=== PATIENT | male | born 1960 | race African-American/Black ===

== ENCOUNTER 2020-12-26 07:21 | Emergency (ER) | payer MEDICAID ==
[~2020-12-26] VITALS: Ht 182.9 cm; Wt 77.0 kg
[2020-12-26 07:39] VITALS: BP 116/88
[2020-12-26] MEDS ORDERED: AMOX-424 PO (08:16)
[2020-12-26] MEDS ORDERED: TOPUD PO (08:16)
== END 2020-12-26 09:03 | disposition home or self-care (01) ==
LOC: ER 07:21
DX: J02.9 Acute pharyngitis, unspecified (principal); Z98.890 Other specified postprocedural states; Z88.8 Allergy status to other drugs, medicaments and biological substances
CPT/HCPCS: 87070; 87430; 99283

== ENCOUNTER 2023-04-18 05:46 | Emergency (ER) | payer MEDICAID ==
[~2023-04-18] VITALS: Ht 188 cm; Wt 73.0 kg
[~2023-04-18 05:46] MED LIST: AMOX-424 PO; BENZ-16 MT; GUAI600T26 MT; MED4 MT; TOPUD PO
[2023-04-18 05:56] VITALS: BP 186/81; O2SAT 98
[2023-04-18] MEDS ORDERED: TOPUD PO (06:32)
[2023-04-18] MEDS ORDERED: ACETAMINOPHEN 325MG TABLET PO ONE (06:45)
[2023-04-18 06:53] VITALS: PULSE 65; RESP 18; TEMP 97.7
== END 2023-04-18 06:59 | disposition home or self-care (01) ==
LOC: ER 05:46
DX: M79.10 Myalgia, unspecified site (principal); M25.559 Pain in unspecified hip; F12.10 Cannabis abuse, uncomplicated; Z79.899 Other long term (current) drug therapy
CPT/HCPCS: 99282

== ENCOUNTER 2023-10-02 14:28 | Emergency (ER) | payer MEDICAID ==
[~2023-10-02] VITALS: Ht 182.9 cm; Wt 66.0 kg
[2023-10-02 14:29] VITALS: O2SAT 98
[2023-10-02] MEDS ORDERED: BENZ150C3 MT (15:28)
[2023-10-02] MEDS ORDERED: ALBU6.7H15 INH (15:28)
[2023-10-02 16:53] VITALS: BP 126/69; PULSE 92; RESP 16; TEMP 97.6
== END 2023-10-02 16:54 | disposition home or self-care (01) ==
LOC: ER 14:28
DX: J06.9 Acute upper respiratory infection, unspecified (principal); F12.10 Cannabis abuse, uncomplicated
CPT/HCPCS: 71045; 99283

== ENCOUNTER 2023-10-09 03:10 | Emergency (ER) | payer MEDICAID ==
[~2023-10-09] VITALS: Ht 188 cm; Wt 90.0 kg
[~2023-10-09 03:10] MED LIST changes: +ALBU6.7H15 INH; +BENZ150C3 MT
[2023-10-09 03:12] VITALS: O2SAT 96
[2023-10-09] MEDS ORDERED: AZIT250T12 MT (05:31)
[2023-10-09] MEDS ORDERED: P20 PO (05:31)
[2023-10-09 05:51] VITALS: BP 101/64; PULSE 100; RESP 16
[2023-10-09] MEDS: AZITHROMYCIN 500 MG TABLET PO ONE (05:54)
[2023-10-09] MEDS: PREDNISONE 20MG TABLET PO ONE (05:54)
== END 2023-10-09 06:02 | disposition home or self-care (01) ==
LOC: ER 03:10
DX: J06.9 Acute upper respiratory infection, unspecified (principal); F12.10 Cannabis abuse, uncomplicated
CPT/HCPCS: 99283; J7512

== ENCOUNTER 2024-12-23 02:55 | Emergency (ER) | payer MEDICAID ==
[~2024-12-23] VITALS: Ht 188 cm; Wt 75.0 kg
[~2024-12-23 02:55] MED LIST changes: +AZIT250T12 MT; -BENZ150C3 MT; +BENZ150C8 MT; -MED4 MT; +METH4TAB95 MT; +P20 PO
[2024-12-23 03:12] VITALS: TEMP 36.6; O2SAT 99
[2024-12-23] MEDS: DEXAMETHASONE 4MG TABLET PO ONE (03:58)
[2024-12-23] MEDS ORDERED: IBUP-2028 MT (05:13)
[2024-12-23 05:22] VITALS: BP 128/83; PULSE 89; RESP 18; O2SAT 100
== END 2024-12-23 05:28 | disposition home or self-care (01) ==
LOC: ER 02:55
DX: M79.675 Pain in left toe(s) (principal); F12.90 Cannabis use, unspecified, uncomplicated; Z98.890 Other specified postprocedural states
CPT/HCPCS: 99283; 73630; J8540

== ENCOUNTER 2024-12-28 03:57 | Emergency (ER) | payer MEDICAID ==
[~2024-12-28] VITALS: Ht 185.4 cm; Wt 73.2 kg
[~2024-12-28 03:57] MED LIST changes: +IBUP-2028 MT
[2024-12-28 04:30] VITALS: O2SAT 98
[2024-12-28] MEDS ORDERED: SULF1TAB48 PO (06:06)
[2024-12-28] MEDS ORDERED: CEPH500C2 PO (06:06)
[2024-12-28 06:33] VITALS: BP 119/74; PULSE 81; RESP 16; TEMP 37; O2SAT 98
== END 2024-12-28 06:34 | disposition home or self-care (01) ==
LOC: ER 03:57
DX: L03.031 Cellulitis of right toe (principal); F12.90 Cannabis use, unspecified, uncomplicated; Z79.899 Other long term (current) drug therapy; Z79.52 Long term (current) use of systemic steroids; Z98.890 Other specified postprocedural states
CPT/HCPCS: 99283

== ENCOUNTER 2025-01-07 02:12 | Emergency (ER) | payer MEDICAID ==
[~2025-01-07] VITALS: Ht 182.9 cm; Wt 71.0 kg
[~2025-01-07 02:12] MED LIST changes: +CEPH500C2 PO; +SULF1TAB48 PO
[2025-01-07 02:20] VITALS: O2SAT 99
[2025-01-07 03:54] VITALS: BP 131/80; PULSE 86; RESP 19; TEMP 36.7; O2SAT 99
== END 2025-01-07 04:06 | disposition home or self-care (01) ==
LOC: ER 02:12
DX: L60.0 Ingrowing nail (principal); F12.10 Cannabis abuse, uncomplicated; F32.A Depression, unspecified; Z48.00 Encounter for change or removal of nonsurgical wound dressing; Z79.899 Other long term (current) drug therapy
CPT/HCPCS: 99281

== ENCOUNTER 2025-01-17 04:12 | Emergency (ER) | payer MEDICAID ==
[~2025-01-17] VITALS: Ht 185.4 cm; Wt 71.0 kg
[2025-01-17 04:29] VITALS: O2SAT 99
[2025-01-17] MEDS ORDERED: ALBU90AE INH (05:31)
[2025-01-17] MEDS: BENZONATATE 100MG CAPSULE PO ONE (05:32)
[2025-01-17 06:10] VITALS: BP 147/77; PULSE 86; RESP 16; TEMP 36.6; O2SAT 98
[2025-01-17] MEDS ORDERED: AZIT250T12 PO (06:26)
== END 2025-01-17 06:13 | disposition home or self-care (01) ==
LOC: ER 04:12
DX: J18.9 Pneumonia, unspecified organism (principal); R05.9 Cough, unspecified; F12.90 Cannabis use, unspecified, uncomplicated; Z79.52 Long term (current) use of systemic steroids
CPT/HCPCS: 71045; 99283

== ENCOUNTER 2025-01-18 06:19 | Emergency (ER) | payer MEDICAID ==
[~2025-01-18] VITALS: Ht 185.4 cm; Wt 71.0 kg
[~2025-01-18 06:19] MED LIST changes: +ALBU90AE INH; +AZIT250T12 PO
[2025-01-18 06:33] VITALS: O2SAT 99
[2025-01-18 07:57] VITALS: BP 119/75; PULSE 83; RESP 18; TEMP 36.8; O2SAT 99
== END 2025-01-18 07:57 | disposition home or self-care (01) ==
LOC: ER 06:19
DX: J18.9 Pneumonia, unspecified organism (principal); Z79.52 Long term (current) use of systemic steroids
CPT/HCPCS: 99283

== ENCOUNTER 2025-01-23 02:45 | Emergency (ER) | payer MEDICAID ==
[~2025-01-23] VITALS: Ht 185.4 cm; Wt 71.0 kg
[2025-01-23 02:53] VITALS: TEMP 36.7
[2025-01-23] MEDS: PREDNISONE 20MG TABLET PO ONE (03:29)
[2025-01-23] MEDS: SODIUM CHLORIDE 0.9% 1,000 ML IV ONE (03:30)
[2025-01-23 03:41] LABS: POTASSIUM 3.2 mEq/L (3.5-5.1)
[2025-01-23 03:42] LABS: CALCIUM 8.3 mg/dL (8.7-10.4)
[2025-01-23] MEDS: ALBUTEROL (0.083%) 2.5MG/3ML NEB HHN ONE (03:42)
[2025-01-23 03:44] VITALS: PULSE 69; RESP 16; O2SAT 97
[2025-01-23 03:47] LABS: BASOPHILS % 0.2 % (0.0-2.0); CREATININE 1.4 mg/dL (0.6-1.3); EOSINOPHILS % 0.5 % (0.0-5.0); HEMATOCRIT. 37.6 % (42.0-52.0); HEMOGLOBIN. 12.5 g/dL (14.0-18.0); LYMPHOCYTES % 12.4 % (20.0-50.0); MEAN CORPUSCULAR HEMOGLOBIN 32.6 pg (28.0-32.0); MEAN CORPUSCULAR HGB CONC 33.3 g/dL (31.0-37.0); MEAN CORPUSCULAR VOLUME 97.9 fL (80.0-94.0); MEAN PLATELET VOLUME 8.9 fl (7.4-10.4); NEUTROPHILS % 80.9 % (40.0-76.0); PLATELET 150 x1000/uL (130-400); RED BLOOD CELL COUNT 3.83 mill/uL (4.7-6.1); RED CELL DISTRIBUTION WIDTH 14.3 % (11.6-14.6); WHITE BLOOD COUNT 6.7 x1000/uL (4.5-11.0)
[2025-01-23] MEDS ORDERED: P50 MT (04:47)
[2025-01-23] MEDS: CEFTRIAXONE 1GM/50ML 50 ML IV ONE (04:50)
[2025-01-23] MEDS: POTASSIUM CHLORIDE 20MEQ/PACKET PO ONE (05:16)
[2025-01-23 05:48] VITALS: BP 133/81; PULSE 73; RESP 22; O2SAT 97
== END 2025-01-23 06:02 | disposition home or self-care (01) ==
LOC: ER 02:45
DX: J18.9 Pneumonia, unspecified organism (principal); F12.90 Cannabis use, unspecified, uncomplicated; Z79.52 Long term (current) use of systemic steroids
CPT/HCPCS: 80048; 85025; 36415; 71045; 94640; 98960; 96361; 96365; 99285; J7512; J0696; Z7610 ×3; J7030; 94070; 94664

== ENCOUNTER 2025-02-06 05:54 | Emergency (ER) | payer MEDICAID ==
[~2025-02-06] VITALS: Ht 185.4 cm; Wt 76.3 kg
[~2025-02-06 05:54] MED LIST changes: +P50 MT
[2025-02-06 06:20] VITALS: TEMP 36.5; O2SAT 99
[2025-02-06 08:14] VITALS: BP 126/68; PULSE 69; RESP 15; O2SAT 100
== END 2025-02-06 08:41 | disposition home or self-care (01) ==
LOC: ER 05:54
DX: R05.9 Cough, unspecified (principal); R09.81 Nasal congestion; Z79.52 Long term (current) use of systemic steroids; Z79.899 Other long term (current) drug therapy
CPT/HCPCS: 71045; 99283

== ENCOUNTER 2025-02-16 20:21 | Emergency (ER) | payer MEDICAID ==
[~2025-02-16] VITALS: Ht 185.4 cm; Wt 65.5 kg
[2025-02-16 20:25] VITALS: O2SAT 97
[2025-02-16 20:40] VITALS: BP 117/69; PULSE 102; RESP 18; TEMP 37; O2SAT 99
[2025-02-16] MEDS: PREDNISONE 20MG TABLET PO ONE (21:42)
[2025-02-16] MEDS ORDERED: P20 MT (23:00)
== END 2025-02-16 23:14 | disposition home or self-care (01) ==
LOC: ER 20:21
DX: R33.9 Retention of urine, unspecified (principal); Z46.6 Encounter for fitting and adjustment of urinary device; Z79.52 Long term (current) use of systemic steroids; Z79.899 Other long term (current) drug therapy
CPT/HCPCS: 99283; J7512; Z7610 ×2

== ENCOUNTER 2025-02-22 10:33 | Emergency (ER) | payer MEDICAID ==
[~2025-02-22] VITALS: Ht 172.7 cm; Wt 69.0 kg
[~2025-02-22 10:33] MED LIST changes: +P20 MT
[2025-02-22 10:38] VITALS: O2SAT 98
[2025-02-22 11:05] VITALS: BP 128/80; PULSE 68; RESP 18; TEMP 36.6; O2SAT 100
== END 2025-02-22 11:06 | disposition home or self-care (01) ==
LOC: ER 10:33
DX: Z46.6 Encounter for fitting and adjustment of urinary device (principal); Z79.52 Long term (current) use of systemic steroids
CPT/HCPCS: 99283

== ENCOUNTER 2025-02-28 00:16 | Emergency (ER) | payer MEDICAID ==
[~2025-02-28] VITALS: Ht 170.2 cm; Wt 60.0 kg
[2025-02-28] MEDS ORDERED: ALPRAZOLAM 0.25 MG TABLET PO ONE (00:30)
[2025-02-28 00:34] VITALS: O2SAT 97
[2025-02-28] MEDS: ALPRAZOLAM 0.25 MG TABLET PO NR (02:32)
[2025-02-28 03:19] VITALS: BP 125/72; PULSE 70; RESP 16; TEMP 36.8; O2SAT 99
[2025-03-07] MEDS ORDERED: CEFP200T13 MT (08:03)
== END 2025-02-28 04:28 | disposition home or self-care (01) ==
LOC: ER 00:16
DX: F41.9 Anxiety disorder, unspecified (principal); Z59.00 Homelessness unspecified; Z79.52 Long term (current) use of systemic steroids; Z79.899 Other long term (current) drug therapy; Z98.890 Other specified postprocedural states
CPT/HCPCS: 51702; 99283; 99284

== ENCOUNTER 2025-03-02 00:09 | Emergency (ER) | payer MEDICAID ==
[~2025-03-02] VITALS: Ht 185.4 cm; Wt 66.0 kg
[2025-03-02 00:18] VITALS: BP 125/82; TEMP 36.8; O2SAT 99
[2025-03-02 00:19] VITALS: PULSE 91; RESP 16; O2SAT 95
== END 2025-03-02 04:20 | disposition left against medical advice (07) ==
LOC: ER 00:09
DX: M79.671 Pain in right foot (principal); Z53.21 Procedure and treatment not carried out due to patient leaving prior to being seen by health care provider; Z98.890 Other specified postprocedural states

== ENCOUNTER 2025-03-03 02:33 | Emergency (ER) | payer MEDICAID ==
[~2025-03-03] VITALS: Ht 185.4 cm; Wt 81.6 kg
[2025-03-03 02:40] VITALS: BP 135/72; PULSE 65; RESP 16; TEMP 36.9; O2SAT 100
[2025-03-07] MEDS ORDERED: CEFP200T13 MT (08:03)
== END 2025-03-03 04:12 | disposition home or self-care (01) ==
LOC: ER 02:33
DX: T83.098A Other mechanical complication of other urinary catheter, initial encounter (principal)
CPT/HCPCS: 51702; 99284

== ENCOUNTER 2025-03-06 07:39 | Emergency (ER) | payer MEDICAID ==
[~2025-03-06] VITALS: Ht 182.9 cm; Wt 80.0 kg
[2025-03-06 07:49] VITALS: O2SAT 98
[2025-03-06 08:48] VITALS: BP 114/66; PULSE 67; RESP 14; TEMP 37.1; O2SAT 100
[2025-03-07] MEDS ORDERED: CEFP200T13 MT (08:03)
== END 2025-03-06 09:17 | disposition home or self-care (01) ==
LOC: ER 07:39
DX: N40.0 Benign prostatic hyperplasia without lower urinary tract symptoms (principal); Z46.6 Encounter for fitting and adjustment of urinary device; Z79.52 Long term (current) use of systemic steroids
CPT/HCPCS: 99283

== ENCOUNTER 2025-03-10 10:10 | Emergency (ER) | payer MEDICAID ==
[~2025-03-10] VITALS: Ht 182.9 cm; Wt 75.0 kg
[~2025-03-10 10:10] MED LIST changes: +CEFP200T13 MT
[2025-03-10 10:13] VITALS: O2SAT 97
[2025-03-10 12:29] VITALS: BP 116/68; PULSE 75; RESP 16; TEMP 36.7; O2SAT 98
[2025-03-10 12:48] LABS: CLARITY URINE CLOUDY (CLEAR); COLOR URINE YELLOW (YELLOW); SPECIFIC GRAVITY URINE 1.019 (1.005-1.030)
[2025-03-10 12:49] LABS: GLUCOSE URINE NEGATIVE (NEGATIVE); KETONES URINE NEGATIVE (NEGATIVE); LEUKOCYTE ESTERASE URINE 3+ (NEGATIVE); NITRITE URINE POSITIVE (NEGATIVE); OCCULT BLOOD URINE 2+ (NEGATIVE); PH URINE 8.0 (4.5-8.0); PROTEIN URINE 1+ (NEGATIVE); UROBILINOGEN URINE 1.0 E.U./dL (0.2-1.0)
[2025-03-10 13:12] LABS: WBC URINE TNTC /hpf (0-2)
[2025-03-10 13:18] LABS: RBC URINE 50-100 /hpf (0-2)
[2025-03-10 13:20] LABS: BACTERIA URINE 4+; SQUAMOUS EPITHELIAL CELL URINE NONE SEEN /lpf (RARE/1+)
== END 2025-03-10 12:49 | disposition home or self-care (01) ==
LOC: ER 10:10
DX: S00.83XA Contusion of other part of head, initial encounter (principal); N39.0 Urinary tract infection, site not specified; Z79.52 Long term (current) use of systemic steroids; Z87.440 Personal history of urinary (tract) infections; Z79.899 Other long term (current) drug therapy; W19.XXXA Unspecified fall, initial encounter; Y93.89 Activity, other specified; Y92.89 Other specified places as the place of occurrence of the external cause; Y99.8 Other external cause status
CPT/HCPCS: 81003; 87086; 87186; 87077; 70450; 70486; 99284; Z7610 ×3; A4606

== ENCOUNTER 2025-03-21 22:14 | Emergency (ER) | payer MEDICAID ==
[~2025-03-21] VITALS: Ht 185.4 cm; Wt 66.0 kg
[2025-03-21 22:31] VITALS: O2SAT 99
[2025-03-22 00:01] LABS: CLARITY URINE CLOUDY (CLEAR); COLOR URINE YELLOW (YELLOW); GLUCOSE URINE NEGATIVE (NEGATIVE); KETONES URINE NEGATIVE (NEGATIVE); LEUKOCYTE ESTERASE URINE 2+ (NEGATIVE); NITRITE URINE POSITIVE (NEGATIVE); OCCULT BLOOD URINE 3+ (NEGATIVE); PH URINE 6.5 (4.5-8.0); PROTEIN URINE 1+ (NEGATIVE); SPECIFIC GRAVITY URINE 1.021 (1.005-1.030); UROBILINOGEN URINE 1.0 E.U./dL (0.2-1.0)
[2025-03-22] MEDS ORDERED: PRED5TAB48 MT (00:40)
[2025-03-22] MEDS ORDERED: CEFP100T8 MT (00:40)
[2025-03-22 00:51] VITALS: BP 132/78; PULSE 91; RESP 16; TEMP 36.8; O2SAT 99
[2025-03-22 01:44] LABS: WBC URINE 25-50 /hpf (0-2)
[2025-03-22 01:49] LABS: RBC URINE 25-50 /hpf (0-2); SQUAMOUS EPITHELIAL CELL URINE FEW /lpf (RARE/1+)
[2025-03-22 01:50] LABS: BACTERIA URINE 1+
== END 2025-03-22 00:52 | disposition home or self-care (01) ==
LOC: ER 22:14
DX: J02.9 Acute pharyngitis, unspecified (principal); N39.0 Urinary tract infection, site not specified; Z79.52 Long term (current) use of systemic steroids; Z79.899 Other long term (current) drug therapy
CPT/HCPCS: 81003; 87077; 87186; 99283

== ENCOUNTER 2025-04-07 23:36 | Emergency (ER) | payer MEDICAID ==
[~2025-04-07] VITALS: Ht 182.9 cm; Wt 73.0 kg
[~2025-04-07 23:36] MED LIST changes: +CEFP100T8 MT; +PRED5TAB48 MT
[2025-04-07 23:42] VITALS: O2SAT 100
[2025-04-08 01:12] LABS: CLARITY URINE CLEAR (CLEAR); COLOR URINE YELLOW (YELLOW); SPECIFIC GRAVITY URINE 1.022 (1.005-1.030)
[2025-04-08 01:13] LABS: GLUCOSE URINE NEGATIVE (NEGATIVE); KETONES URINE NEGATIVE (NEGATIVE); LEUKOCYTE ESTERASE URINE 2+ (NEGATIVE); NITRITE URINE POSITIVE (NEGATIVE); OCCULT BLOOD URINE TRACE (NEGATIVE); PH URINE >9.0 (4.5-8.0); PROTEIN URINE 1+ (NEGATIVE); UROBILINOGEN URINE 0.2 E.U./dL (0.2-1.0)
[2025-04-08 01:41] VITALS: BP 142/84; PULSE 97; RESP 18; TEMP 37.4; O2SAT 100
[2025-04-08 01:50] LABS: SQUAMOUS EPITHELIAL CELL URINE NONE SEEN /lpf (RARE/1+)
[2025-04-08 01:51] LABS: BACTERIA URINE 2+; WBC URINE 50-100 /hpf (0-2)
[2025-04-08] MEDS ORDERED: CEFP200T13 MT (02:24)
[2025-04-08] MEDS ORDERED: CEFTRIAXONE SODIUM 1G VIAL IM ONE (02:30)
== END 2025-04-08 02:29 | disposition left against medical advice (07) ==
LOC: ER 23:36
DX: N39.0 Urinary tract infection, site not specified (principal); N48.89 Other specified disorders of penis; Z79.899 Other long term (current) drug therapy
CPT/HCPCS: 99283; 81003; 87086; 87186; 87077; A6449